=== PATIENT | male | born 1995 | race Caucasian/White ===

== ENCOUNTER 2018-02-06 20:21 | Emergency (ER) | payer OTHER ==
[~2018-02-06] VITALS: Ht 175.3 cm; Wt 70.3 kg
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
[2018-02-06] MEDS ORDERED: TDAP DIPH,PERTUSS,TET VAC/PF 0.5 ML DISP.SYRIN IM ONE ×2 (20:45→20:49)
[2018-02-06] MEDS ORDERED: MORPHINE SULFATE 4 MG/1 ML DISP.SYRIN IM ONE (20:45)
[2018-02-06] MEDS ORDERED: MORPHINE SULFATE 4 MG/1 ML DISP.SYRIN ONE (20:48)
--- NOTE | 2018-02-06 21:10 | NUR ---
XRAY AT BEDSIDE
--- NOTE | 2018-02-06 22:07 | NUR ---
ALL ROAD RASH IRRIGATED USING NS AND BANDAGED.
--- NOTE | 2018-02-06 22:33 | NUR ---
Patient discharged to home in stable conditon. Written and verbal after care instructions given. Patient verbalizes understanding of instructions. PT D/C W/ PRESCRIPTION. ALL BELONGINGS W/ PT. PT SELF-AMBULATED WITHOUT DIFFICULTY. PT STATES HE WILL BE PICKED UP BY FRIEND IN PRIVATE VEHICLE.
[2018-02-06 22:34] VITALS: BP 132/64
== END 2018-02-06 22:38 | disposition home or self-care (01) ==
LOC: ER 20:23
DX: S50.02XA Contusion of left elbow, initial encounter (principal); S50.12XA Contusion of left forearm, initial encounter; S60.212A Contusion of left wrist, initial encounter; S80.02XA Contusion of left knee, initial encounter; S80.01XA Contusion of right knee, initial encounter; S90.02XA Contusion of left ankle, initial encounter; S70.02XA Contusion of left hip, initial encounter; S90.112A Contusion of left great toe without damage to nail, initial encounter; F17.200 Nicotine dependence, unspecified, uncomplicated; V29.9XXA Motorcycle rider (driver) (passenger) injured in unspecified traffic accident, initial encounter; Y93.89 Activity, other specified; Y92.89 Other specified places as the place of occurrence of the external cause; Y99.8 Other external cause status
CPT/HCPCS: 73080; 73502; 73610; 73660; 90471; 90715; 96372; 99284; 99406; A4217 ×2; A4663; J2270

== ENCOUNTER 2019-02-10 09:57 | Emergency (ER) | payer OTHER ==
[~2019-02-10] VITALS: Ht 175.3 cm; Wt 70.3 kg
--- NOTE | 2019-02-10 10:08 | NUR ---
at bedside to see and examine patient.
[2019-02-10] MEDS ORDERED: MORPHINE SULFATE 4 MG/1 ML DISP.SYRIN ONE (10:14)
[2019-02-10] MEDS ORDERED: SILVER SULFADIAZINE 1% CREAM 50 GM TP ONE (10:15)
[2019-02-10] MEDS ORDERED: MORPHINE SULFATE 4 MG/1 ML DISP.SYRIN IM ONE (10:15)
[2019-02-10] MEDS ORDERED: SILVER SULFADIAZINE 1% CREAM 25 GM TUBE TP ONE (10:16)
--- NOTE | 2019-02-10 10:33 | NUR ---
DCD instructions and dressing applied to affected area, Patient left room AAOx4 no c/of pain.
== END 2019-02-10 10:37 | disposition home or self-care (01) ==
LOC: ER 09:57
DX: S40.811A Abrasion of right upper arm, initial encounter (principal); S80.812A Abrasion, left lower leg, initial encounter; S30.810A Abrasion of lower back and pelvis, initial encounter; F17.200 Nicotine dependence, unspecified, uncomplicated; V89.2XXA Person injured in unspecified motor-vehicle accident, traffic, initial encounter; Y93.89 Activity, other specified; Y92.89 Other specified places as the place of occurrence of the external cause; Y99.8 Other external cause status
CPT/HCPCS: 96372; 99283; J2270; A4663